=== PATIENT | male | born 1960 | race Caucasian/White ===

== ENCOUNTER 2016-09-23 11:50 | Inpatient (IN) | payer OTHER ==
[~2016-09-23] VITALS: Ht 167.6 cm; Wt 86.0 kg
[~2016-09-23 11:50] MED LIST: HYDR-762 PO; ONDA4TAB35 PO; TAMS0.4C2 PO
[2016-09-23 13:30] VITALS: Ht 167.6 cm; Wt 86.0 kg
[2016-09-23] MEDS ORDERED: ACETAMINOPHEN 325 MG TAB PO PRN (15:00)
[2016-09-23] MEDS ORDERED: LORAZEPAM 2 MG INJ IV PRN (15:00)
[2016-09-23] MEDS ORDERED: NITROGLYCERIN (SL) 0.4 MG TAB SL PRN (15:00)
[2016-09-23] MEDS ORDERED: MAGNESIUM HYDROXIDE 30ML CUP PO PRN (15:00)
[2016-09-23] MEDS ORDERED: HYDROCODONE/APAP (5/325) TAB PO PRN (15:00)
[2016-09-23] MEDS ORDERED: hydrALAzine 20 MG INJ IV PRN (15:00)
[2016-09-23] MEDS ORDERED: NACL 0.9% 3 ML SYG IV SCH (15:00)
[2016-09-23] MEDS ORDERED: DOCUSATE SODIUM 100 MG CAP PO PRN (15:00)
[2016-09-23] MEDS ORDERED: ALBUTEROL/IPRATROPIUM (NEB) 3 ML AMP HHN PRN (15:00)
[2016-09-23] MEDS ORDERED: morphine 2 MG INJ IV PRN (15:00)
[2016-09-23] MEDS ORDERED: ONDANSETRON 4 MG INJ IV PRN (15:00)
[2016-09-23] MEDS ORDERED: NA PHOSPHATE/BIPHOS 133 ML ENEMA PR PRN (15:00)
--- NOTE | 2016-09-23 15:29 | HP ---
DATE OF ADMISSION: 09/23/2016 CHIEF COMPLAINT: Right flank pain, nausea, vomiting. HISTORY OF PRESENT ILLNESS: A 55-year-old male with past medical history of left-sided kidney stone and mild hypertension, who presented to outside hospital earlier today. He started having nausea, vomiting symptoms last night and right flank pain. Denied any dysuria. Denied any hematuria. The symptoms became worse this morning and decided to go to the [facility] and was transferred over here due to insurance purposes. He had nonbilious, nonbloody vomiting. He tried to take hydro codone at home, which did not relieve his symptoms. When he came into the outside hospital ER earli er today, he had also elevated blood pressure as well. He had a CAT scan that showed a distal right 3 mm ureteral calculus and an incidental left-sided kidney stone as well. His UA does show positiv e nitrites consistent with UTI. He received a dose of antibiotics at the outside hospital. PAST MEDICAL HISTORY: As stated above. ALLERGIES: PENICILLIN. HOME MEDICATIONS: 1. Flomax 0.4 mg daily. 2. Downey 10/325 q.6h. p.r.n. 3. Zofran 4 mg p.o. q.6h. p.r.n. PAST SURGICAL HISTORY: Some kind of teeth and gum surgery many years ago and also left kidney stone removal a year ago by Dr. Figueredo. FAMILY HISTORY: Noncontributory. SOCIAL HISTORY: Negative for smoking, drinking, or IV drug abuse. PHYSICAL EXAMINATION: VITAL SIGNS: Today temperature max 98.4, pulse 67 to 80, respirations 16 to 18, blood pressure is 1 27 to 197/102 to 82 diastolic, saturating at 97% on room air. GENERAL: The patient is sitting up in bed, family members at the bedside, in no acute distress. HEENT: Pupils equal, round, react to light. Extraocular muscles intact. NECK: Supple, no thyromegaly. LUNGS: Clear to auscultation bilaterally. CARDIOVASCULAR: S1, S2 heard. No rubs, gallops. ABDOMEN: Soft, nontender, nondistended. Normal bowel sounds. No rebound or guarding. Negative CV A tenderness bilaterally. MUSCULOSKELETAL: No lower extremity edema bilaterally. NEUROLOGIC: No focal deficits. PSYCHIATRIC: Normal mood and affect. LABORATORY DATA: CBC showed WBC of 8.4, hemoglobin 16.2, hematocrit 46.6, platelets of 189. Sodium 141, potassium 4.1, chloride 101, CO2 of 25, BUN 12, creatinine 1.4, glucose 133. LFTs are essenti ally normal. Again, the UA showed positive nitrites, small leukocyte esterase positive. CT scan re sults as mentioned above. ASSESSMENT AND PLAN: A 55-year-old male coming in with right flank pain and nausea, vomiting sympto ms with signs of right-sided distal ureteral kidney stone and pyelonephritis. 1. Right flank pain secondary to distal ureter kidney stone and pyelonephritis. Put patient on bro ad-spectrum antibiotics, pain control medications with morphine and Downey p.r.n. Check TSH, A1c, li pid panel. Give IV fluids, antiemetic medicines. Get a urology consult as well. The patient may b enefit from cystoscopy for stone removal. We will continue Flomax as well. We will discuss the justin n with urology team, however. 2. Hypertensive urgency, resolved. Continue hydralazine p.r.n. as well. 3. Gastrointestinal prophylaxis, proton pump inhibitor. 4. Deep venous thrombosis prophylaxis, heparin subcutaneous. Consider PT consult as well. Dictated By: AILYN DUNNE Conf#: [id number] DID#: [id number]
[2016-09-23 15:40] LABS: INR 0.96; PROTIME 12.8 Sec (12.2-14.2)
[2016-09-23 15:41] LABS: PARTIAL THROMBOPLASTIN TIME 26.4 Sec (25.0-35.0)
[2016-09-23 17:50] VITALS: BP 138/73; PULSE 93; RESP 16
[2016-09-23] MEDS: AZTREONAM 1 GM/NS (PMX) 50 ML IVPB SCH (17:58)
[2016-09-23] MEDS: SOD CHLORIDE 0.9% 1,000 ML IV SCH (17:58)
[2016-09-23] MEDS: HEPARIN 5,000 UNIT/0.5 ML VIAL SC SCH ×2 (20:23→21:00)
[2016-09-23 20:50] VITALS: BP 139/77; RESP 22
[2016-09-24] MEDS: SOD CHLORIDE 0.9% 1,000 ML IV SCH ×2 (00:51→05:44)
[2016-09-24] MEDS ORDERED: PANTOPRAZOLE (EC) 40 MG TAB PO SCH (06:00)
[2016-09-24 07:10] LABS: ADD SCAN DIFF NO
[2016-09-24 07:30] LABS: BASOPHILS % 0.3 % (0.0-2.0); EOSINOPHILS # 0.2 10^3/ul (0.0-0.5); EOSINOPHILS % 2.3 % (0.0-7.0); HEMATOCRIT 39.4 % (42.0-52.0); HEMOGLOBIN 13.3 g/dl (14.0-18.0); LYMPHOCYTES # 2.2 10^3/ul (0.8-2.9); MEAN CORPUSCULAR HEMOGLOBIN 29.4 pg (29.0-33.0); MEAN CORPUSCULAR HGB CONC 33.8 g/dl (32.0-37.0); MEAN CORPUSCULAR VOLUME 87.2 fl (82.0-101.0); MEAN PLATELET VOLUME 10.1 fl (7.4-10.4); MONOCYTE # 0.7 10^3/ul (0.3-0.9); MONOCYTES % 7.5 % (0.0-11.0); NEUTROPHIL # 6.1 10^3/ul (1.6-7.5); NEUTROPHILS % 65.6 % (39.0-77.0); PLATELET COUNT 192 10^3/UL (140-415); RED BLOOD COUNT 4.52 10^6/ul (4.70-6.10); RED CELL DISTRIBUTION WIDTH 12.7 % (11.5-14.5); WHITE BLOOD COUNT 9.3 10^3/ul (4.8-10.8)
[2016-09-24 07:38] LABS: CALCIUM 8.4 mg/dl (8.4-10.2); CREATININE 1.31 mg/dl (0.61-1.24); MAGNESIUM 1.9 mg/dl (1.7-2.5); PHOSPHORUS 3.6 mg/dl (2.5-4.9); POTASSIUM 4.1 mmol/L (3.5-5.1)
[2016-09-24 08:02] VITALS: BP 117/68; RESP 20
[2016-09-24 08:04] LABS: THYROID STIMULATING HORMONE 0.472 MIU/L (0.465-4.680)
[2016-09-24] MEDS: HEPARIN 5,000 UNIT/0.5 ML VIAL SC SCH (09:00)
[2016-09-24] MEDS ORDERED: TAMSULOSIN (SR) 0.4 MG CAP PO SCH (09:00)
[2016-09-24] MEDS: AZTREONAM 1 GM/NS (PMX) 50 ML IVPB SCH (09:13)
--- NOTE | 2016-09-24 09:32 | PDOCDIS ---
Discharge Instructions CONDITION Patient Condition: Stable HOME CARE INSTRUCTIONS: Diet Instructions: Regular ACTIVITY: Activity Restrictions: Slowly Increase Activity FOLLOW UP/APPOINTMENTS Appointments Please take your medications as prescribed, and see your doctor in the clinic in 1 week. AILYN MENDENHALL Sep 24, 2016 09:32
[2016-09-24] MEDS ORDERED: LEVO750T25 PO (09:34)
--- NOTE | 2016-09-24 09:56 | CONS ---
DATE OF ADMISSION: 09/23/2016 DATE OF CONSULTATION: 09/24/2016 REQUESTING PHYSICIAN: Dr. Martínez. Dear Dr. Martínez: Thank you for asking me to see this patient in urological consultation. HISTORY OF PRESENT ILLNESS: This is a 55-year-old male who is known to me from before. He does hav e a history of kidney stones. About a year ago he had a stone in the left upper ureter that was imp acted there and the stone was removed. The patient now presented to [facility] with right flank pain. He had a CT scan and that showed a stone in the distal right ureter and because of insu maximo reasons the patient was transferred [facility]. [facility]. He has no pain and it seems last night he did pass a stone and the [facility] has not had any pain since then. No nausea, no vomiting and no dysuria. PAST MEDICAL HISTORY: His past history otherwise is unremarkable except for what is mentioned above. Also he has had a history of dental surgery. SOCIAL HISTORY: He does not smoke, does not drink any alcohol, and there is no history of drug abus e. PHYSICAL EXAMINATION: GENERAL: Reveals an elderly male who is very comfortable at the present. He weighs 86 kilograms. His height is 66 inches tall. VITAL SIGNS: His temperature is 97.6, pulse 90, respirations 20, blood pressure 117/68. HEAD AND NECK: Unremarkable. ABDOMEN: Soft. There is no flank tenderness. GENITALIA: External genitalia are normal. EXTREMITIES: Normal. He did have a KUB last night and the KUB does not show any stones over the course of the ureters. T he CT scan that he had over at [facility] was reviewed and one could see the stone in the distal rig ht ureter and there is also a small stone in the lower pole raymundo of the left kidney. The left kidn ey is atrophic. LABORATORY DATA: CBC shows a white count of 9.3, hemoglobin 13.3, hematocrit is 39.4, platelet coun t is 192,000. BUN is 14, creatinine 1.31. Electrolytes are normal. IMPRESSION: Distal right ureteral stone. The patient has passed it and he is comfortable at the [facility]ent. Therefore recommendation is to send him home and he does not need any pain medication or ant ibiotics and he also does not need Flomax. Dictated By: LORI HOOPER/NERISSA Conf#: [id number] DID#: [id number]
--- NOTE | 2016-09-24 10:07 | DS ---
DATE OF ADMISSION: 09/23/2016 DATE OF DISCHARGE: HOSPITAL COURSE: This is a 55-year-old male originally admitted on 09/23/2016, being discharged orquidea e on 09/24/2016. The patient was admitted because of right flank pain, nausea and vomiting. He was found with a distal ureter kidney stone on the right side, which was found on CT scan, and also elbert lonephritis. He was admitted. He was placed on IV antibiotics and IV fluids as his UA was positive for UTI. He was actually able to eventually pass the stone. He was able to ambulate and tolerate a p.o. diet. His labs were stable on the day of discharge. He was evaluated by urology team who ju recommended medical management and because he has passed the stone, after discussion with the uro logy team they are recommending discharge home today in improved condition. DISCHARGE MEDICATIONS: He will be sent with: 1. Levaquin 750 mg p.o. daily. 2. Jenks 10/325 q.6h. p.r.n. 3. Zofran 4 mg p.o. q.6h. p.r.n. 4. Flomax 0.4 mg p.o. daily. FOLLOWUP: He will need to follow up with the primary care doctor in the clinic in the next 1 to 2 w eeks. FINAL DIAGNOSES: 1. Right flank pain, nausea and vomiting secondary to right distal ureter kidney stone that has pas sed now. 2. Urinary tract infection/pyelonephritis, improved. 3. Hypertensive urgency, resolved. 4. Mild renal insufficiency, resolving. 5. Mild hypertension. 6. History of left-sided kidney stone in the past, status post cystoscopy a year ago for that. Time spent discharging the patient 40 minutes. Dictated By: AILYN DUNNE Conf#: [id number] DID#: [id number]
--- NOTE | 2016-09-25 03:17 | RADRPT ---
PROCEDURE: XR Abdomen. CLINICAL INDICATION: Kidney stones. TECHNIQUE: AP abdomen x-ray. COMPARISON: CT examination of the abdomen and pelvis dated 07/24/2015. Fluoroscopy services during placement of left ureteral stent. During placement of left ureteral stent dated 10/31/2015. FINDINGS: Previously seen left ureteral stent on fluoroscopic examination dated 10/31/2015 is removed. Air fills a portion of the non dependent left lower quadrant redundant sigmoid colon. There is no evidence of obstruction. There are no abnormal calcifications overlying the expected location of the bilateral kidneys or exp ected location of the bilateral urinary tracts. The osseus structures are unremarkable. Suspected cardiomegaly. Lung bases otherwise clear. IMPRESSION: 1. The cecum the appears to be redundant and located in the left lower quadrant. 2. Consider CT correlation. 3. No identified renal or ureteral stones. 4. Previously identified prominent stones in the proximal left ureter are not seen. RPTAT: [facility] Physician Main Date Time Electronically viewed and signed by Physician Main on 09/25/2016 03:16 RS/
== END 2016-09-24 12:40 | disposition home or self-care (01) | DRG 694 ==
LOC: PP2 13:08
PROVIDERS: ADMIT Family Medicine; ATTEND Family Medicine
DX: N20.1 Calculus of ureter (principal); N12 Tubulo-interstitial nephritis, not specified as acute or chronic; I10 Essential (primary) hypertension; N28.9 Disorder of kidney and ureter, unspecified; Z87.442 Personal history of urinary calculi
CPT/HCPCS: 74000; 80048; 80061; 83036; 83735; 84100; 84439; 84443; 85025; 85610; 85730; 97162; J1644; J2405; J7030